=== PATIENT | female | born 1965 | race African-American/Black ===

== ENCOUNTER 2021-11-05 12:45 | Emergency (ER) | payer MEDICAID ==
[~2021-11-05] VITALS: Ht 160 cm; Wt 53.0 kg
[2021-11-05 12:48] VITALS: BP 135/80
[2021-11-05 14:57] LABS: BASOPHILS % 0.4 % (0.0-2.0); EOSINOPHILS % 0.2 % (0.0-5.0); HEMATOCRIT. 32.6 % (36.0-48.0); HEMOGLOBIN. 10.7 g/dL (12.0-16.0); LYMPHOCYTES % 20.6 % (20.0-50.0); MEAN CORPUSCULAR HEMOGLOBIN 25.8 pg (28.0-32.0); MEAN CORPUSCULAR VOLUME 78.7 fL (81.0-99.0); NEUTROPHILS % 75.8 % (40.0-76.0); PLATELET 194 x1000/uL (130-400); RED BLOOD CELL COUNT 4.15 mill/uL (4.2-5.4); RED CELL DISTRIBUTION WIDTH 14.1 % (11.6-14.6)
[2021-11-05 15:03] LABS: CHLORIDE 113 mEq/L (98-107)
[2021-11-05 15:07] LABS: ETHANOL BLOOD < 10 mg/dL
[2021-11-05] MEDS ORDERED: BACITRACIN ZINC OINT UDPKT TOP ONE (16:15)
[2021-11-05] MEDS ORDERED: LIDOCAINE HCL/EPINEPHRINE 1%-EPI 1:100,000 20 ML VIAL INFIL ONE (16:15)
[2021-11-05] MEDS ORDERED: IBUP-2028 MT (17:48)
[2021-11-05] MEDS ORDERED: SULF1TAB48 MT (17:48)
[2021-11-05] MEDS ORDERED: CEPH500C2 MT (17:48)
== END 2021-11-05 18:50 | disposition home or self-care (01) ==
LOC: ER 13:06
DX: L02.415 Cutaneous abscess of right lower limb (principal); L02.211 Cutaneous abscess of abdominal wall; R53.1 Weakness; G40.909 Epilepsy, unspecified, not intractable, without status epilepticus; Z86.19 Personal history of other infectious and parasitic diseases; Z59.00 Homelessness unspecified
CPT/HCPCS: 10060; 36415; 80053; 80320; 82962; 85025; 99283; J3490; G0480